=== PATIENT | male | born 2000 | race Caucasian/White ===

== ENCOUNTER 2020-12-15 20:16 | Emergency (ER) | payer OTHER ==
[~2020-12-15] VITALS: Ht 177.8 cm; Wt 72.6 kg
[2020-12-15 21:00] VITALS: BP_SYST 123; BP_SYST 128; BP_DIAS 80
[2020-12-15] MEDS ORDERED: TORADOL IM STA (21:24)
--- NOTE | 2020-12-15 21:28 | ER.PDOC ---
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 Noted, Nursing Assessment Review of Systems Constitutional: see HPI EENTM: no symptoms reported Respiratory: no symptoms reported Cardiovascular: no symptoms reported Gastrointestinal: no symptoms reported Genitourinary: see HPI Musculoskeletal: no symptoms reported Skin: no symptoms reported Psychiatric/Neurological: no symptoms reported Endocrine: no symptoms reported Hematologic/Lymphatic: no symptoms reported All Other Systems: Reviewed and Negative Physical Exam General Appearance: No Apparent Distress, WD/WN EENT: eyes nml inspection, nml ENT inspection Neck: nml inspection, non-tender Cardiovascular/Respiratory: Regular Rate, Rhythm, No M/R/G, Normal Peripheral Pulses Abdomen: Normal Bowel Sounds, Non Tender, Soft Male Genitals: Scrotum Tenderness (L), Testicular Tenderness (L), Other (Approximately 1 cm firm nodule on the posterior aspect of left testicle) Back: nml inspection, CVA tenderness Extremities: Normal Range of Motion, Non-Tender Neurologic/Psychiatric: paper reeler II-XII NML as Tested, No Motor/Sensory Deficits Skin: Normal Color Results/Orders Results/Orders Orders - IFEOMA MALLORY DO Ketorolac Tromethamine (Toradol) (12/15/20 21:24) Us Scrotal (12/15/20 21:24) Urinalysis (12/15/20 21:24) Urine Culture (12/15/20 21:27) Ketorolac Tromethamine (Toradol) (12/15/20 22:25) Ceftriaxone Sodium (Rocephin) (12/15/20 23:14) Vital Signs Date Time Temp Pulse Resp B/P (MAP) Pulse Ox O2 Delivery O2 Flow Rate FiO2 12/15/20 21:00 98.7 103 18 96 12/15/20 21:00 98.7 103 18 12/15/20 21:00 98.7 103 18 128/80 (96) 96 Room Air Administered Medications Medications (Trade) Dose Ordered Sig/Nadine Route PRN Reason Start Time Stop Time Status Last Admin Dose Admin Ketorolac Tromethamine (Toradol) 30 mg STAT STAT IM 12/15/20 21:24 12/15/20 21:27 DC 12/15/20 22:31 30 MG Laboratory Tests Test 12/15/20 21:27 Urine Collection Type RANDOM Urine Color YELLOW Urine Appearance HAZY Urine Bilirubin NEGATIVE (NEGATIVE) Urine Ketones NEGATIVE (NEGATIVE) Urine Specific Healy 1.025 (1.005-1.030) Urine pH 6.5 (4.5-8.0) Urine Protein NEGATIVE (NEGATIVE) Urine Urobilinogen 0.2 E.U./dL (0.2) Urine Nitrate NEGATIVE (NEGATIVE) Urine Leukocyte Esterase NEGATIVE (NEGATIVE) Urine Glucose (Auto)(UA) NEGATIVE (NEGATIVE) Urine Blood TRACE-INTACT (NEGATIVE) H Urine RBC 0-2 RBC/HPF (NONE SEEN) Urine WBC 2-5 WBC/HPF (0-2) Urine Squamous Epithelial Cells FEW #/HPF (FEW) Urine Bacteria FEW (NONE SEEN) H Progress Progress Ultrasound performed reveals possible epididymal orchitis on the left in addition to varicocele and hydrocele. Although I do feel the patient symptoms were consistent with varicocele hydrocele we will empirically treat with ceftriaxone and doxycycline. No signs of testicular torsion. Patient will be counseled to follow-up with urology. ER DEPART Departure Time of Disposition: 23:17 Disposition: HOME / SELF CARE / HOMELESS Impression: Primary Impression: Epididymitis Additional Impression: Hydrocele of testis Condition: Improved Referrals: PCP,UNKNOWN (PCP) PRIMARY CARE PROVIDER Duration or Time Spent with Pa: 20 Problem Qualifiers IFEOMA MALLORY DO Dec 15, 2020 21:28
[2020-12-15 21:47] LABS: BILIRUBIN,URINE NEGATIVE (NEGATIVE)
[2020-12-15 21:48] LABS: UROBILINOGEN,URINE 0.2 E.U./dL (0.2)
[2020-12-15] MEDS ORDERED: TORADOL ONE (22:25)
--- NOTE | 2020-12-15 22:27 | NUR ---
BACK FROM ULTRASOUND BACK TO ROOM FROM ULTRASOUND. ALERT AND ORIENTED X3.
--- NOTE | 2020-12-15 23:11 | DIREP ---
PROCEDURE:US TESTICULAR COMPARISON:None. INDICATIONS:Left testicular swelling and pain X 2 DAYS, firm nodule TECHNIQUE:The scrotum was evaluated with real scale, spectral analysis, and color duplex doppler sonography. FINDINGS: RIGHT TESTICLE: Measures 3.2 x 4.5 x 2.0 cm. No mass or microcalcifications. LEFT TESTICLE: Measures 3.6 x 4.5 x 2.1 cm. No mass or microcalcifications. EPIDIDYMIS:The right epididymal head measures 0.9 x 0.8 cm. The left epididymal head measures 0.9 x 0.6 cm. Small right epididymal head cysts measuring 0.4 x 0.2 x 0.3 cm and 0.9 x 0.5 x 0.6 cm. OTHER:Small left varicocele. Small left hydrocele. Left testicle and epididymis are hyperemic relative to the right. DOPPLER FLOW: Symmetric waveforms with sustained diastolic flow. CONCLUSION: 1. Possible left epididymo-orchitis, though the vascular scale was decreased on the left compared to the right which could be misinterpreted as increased blood flow in the left testicle and epididymis. 2. Small right epididymal head cysts. 3. Small left varicocele and hydrocele. Dictated by: Brian Sharma M.D. on 12/15/2020 at 11:03 PM
[2020-12-15] MEDS ORDERED: NS IM STA (23:14)
[2020-12-15] MEDS ORDERED: ROCEPHIN IM STA (23:14)
[2020-12-15 23:25] VITALS: BP 122/72
== END 2020-12-15 23:40 | disposition home or self-care (01) ==
LOC: ER 20:16
DX: N50.812 Left testicular pain (principal); N45.1 Epididymitis; N43.3 Hydrocele, unspecified; Z79.1 Long term (current) use of non-steroidal anti-inflammatories (NSAID)
CPT/HCPCS: 76870; 81001; 87086; 96372; 99284; J1885

== ENCOUNTER → 2021-10-28 | Outpatient (CLI) | payer BC | END | disposition home or self-care (01) | LOC: NPLAB 18:12 | PROVIDERS: ATTEND Nurse Practitioner Adult Health | DX: R50.9 Fever, unspecified (principal); Z20.822 Contact with and (suspected) exposure to COVID-19 | CPT/HCPCS: 87426 ==